=== PATIENT | female | born 1950 | race Native Hawaiian/Other Pacific Islander ===

== ENCOUNTER 2017-06-12 12:24 | Outpatient (CLI) | payer OTHER, MEDICARE | END 2017-06-12 21:57 | disposition home or self-care (01) | LOC: LABW 12:24 | DX: A31.8 Other mycobacterial infections (principal) | CPT/HCPCS: 87116; 87206 ==

== ENCOUNTER 2022-05-15 08:36 | Outpatient (CLI) | payer OTHER, MEDICARE ==
[~2022-05-15] VITALS: Ht 165.1 cm; Wt 67.1 kg
== END 2022-05-15 19:34 | disposition home or self-care (01) ==
LOC: NM 08:36
PROVIDERS: ATTEND Physician Assistant
DX: R09.89 Other specified symptoms and signs involving the circulatory and respiratory systems (principal); I20.8 Other forms of angina pectoris
CPT/HCPCS: A9500; J2785

== ENCOUNTER 2022-06-07 13:03 | Outpatient (CLI) | payer OTHER, MEDICARE | END 2022-06-07 22:24 | disposition home or self-care (01) | LOC: US 13:03 | PROVIDERS: ATTEND Physician Assistant | DX: R09.89 Other specified symptoms and signs involving the circulatory and respiratory systems (principal) ==